=== PATIENT | female | born 2000 | race Caucasian/White ===

== ENCOUNTER 2020-06-16 11:58 | Outpatient (CLI) | payer OTHER, MEDICAID, SELFPAY ==
[2020-06-16 13:51] LABS: Basophils Percent Auto 0.2 % (0.2-1.2); Eosinophils Percent Auto 0.3 % (0-4.4); Hematocrit 33.6 % (37.0-47.0); Hemoglobin 11.5 g/dL (12.0-15.0); Immature Granulocyte Absolute 0.05 K/mm3 (0.00-0.031); Immature Granulocyte Percent A 0.6 % (0-0.5); Lymphocytes Absolute Auto 1.28 K/mm3 (0.9-3.2); Lymphocytes Percent Auto 14.9 % (18.3-44.2); Mean Corpuscular HGB Conc 34.2 g/dl (32-36); Mean Corpuscular Hemoglobin 31.8 pg (26-34); Mean Corpuscular Volume 92.8 fl (80-100); Mean Platelet Volume 9.9 fl (7.4-10.4); Monocytes Absolute Auto 0.3 K/mm3 (0.1-0.6); Monocytes Percent Auto 3.6 % (2.6-8.5); Neutrophils Absolute Auto 6.9 K/mm3 (1.3-6.7); Neutrophils Percent Auto 80.4 % (45.5-73.1); Platelet Count Result 264 k/mm3 (150-375); Red Blood Count 3.62 M/mm3 (4.2-5.4); White Blood Count 8.6 K/mm3 (4.5-10.0)
[2020-06-16 13:58] LABS: Add Urine Microscopic? YES; Appearance Urine Clear (Clear); Bilirubin Urine Negative (Negative); Blood Urine 1+ (Negative); Color Urine Yellow (Yellow); Glucose Urine UA 1+ mg/dL (Negative); Ketones Urine Negative (Negative); Leukocyte Esterase Ur Negative LEU/UL (NEGATIVE); Mucus Urine Rare /lpf; Nitrate Urine Negative (Negative); Protein Urine Negative (Negative); Specific Grav Ur 1.014 (1.001-1.035); Squamous Epithelial Cell Urine Moderate /hpf (Few); Transitional Epi Cells Urine Rare /hpf (None Seen); Urobilinogen Urine Negative mg/dL (<2.0)
[2020-06-16 14:03] LABS: Glucose 1 Hour PP 50gm Dose 175 mg/dL
[2020-06-16 14:43] LABS: HIV 1/2 Ab P24 Ag Result Negative (Negative)
[2020-06-16 15:09] LABS: Hepatitis C Virus Antibody Negative (Negative)
[2020-06-16 15:20] LABS: Hepatitis B Surface Antigen Negative (Negative); Rubella IgG Antibody 11.2 IU/ML
[2020-06-19 06:52] LABS: Rapid Plasma Reagin Non-Reactive (NonReactive)
[2020-06-24 15:20] LABS: Hematocrit 35.6 % (35.0-45.0); Hemoglobin 11.4 g/dL (11.7-15.5); MCH 33.2 pg (27.0-33.0); MCV 103.8 FL (80.0-100.0); RDW 15.7 % (11.0-15.0); Red Blood Cell Count 3.43 Mill/uL (3.80-5.10)
[2020-06-26 20:01] LABS: CF Result NEGATIVE (NEGATIVE)
== END 2020-06-16 11:59 | disposition home or self-care (01) ==
LOC: ANHLAB 12:03
PROVIDERS: Visit Provider Student in an Organized Health Care Education/Training Program
DX: Z34.90 Encounter for supervision of normal pregnancy, unspecified, unspecified trimester (principal); Z3A.00 Weeks of gestation of pregnancy not specified
CPT/HCPCS: 36415; 81001; 81220; 82306; 82947; 83021; 84443; 85025; 86592; 86703; 86762; 86787; 86803; 86850; 86900; 86901; 87077; 87086; 87088; 87186; 87340; G0432

== ENCOUNTER 2020-06-22 08:12 | Outpatient (CLI) | payer OTHER, MEDICAID, SELFPAY ==
[2020-06-22 09:16] LABS: Glucose Fasting Gestational 87 mg/dL (>/=95)
[2020-06-22 10:56] LABS: Glucose 1 Hour Gest 228 mg/dL (>/=180)
[2020-06-22 12:22] LABS: Glucose 2 Hour Gest 168 mg/dL (>/= 155)
[2020-06-22 12:49] LABS: Glucose 3 Hour Gest 101 mg/dL (>/=140)
== END 2020-06-22 08:13 | disposition home or self-care (01) ==
LOC: ANHLAB 08:15
PROVIDERS: PCP Student in an Organized Health Care Education/Training Program; Visit Provider Student in an Organized Health Care Education/Training Program
DX: R73.09 Other abnormal glucose (principal)
CPT/HCPCS: 36415; 82951; 82952

== ENCOUNTER 2020-07-14 10:30 | Outpatient (RCR) | payer OTHER, SELFPAY ==
[2020-07-12 13:15] VITALS: BMI 28.3
== END 2020-09-25 14:16 | disposition home or self-care (01) ==
LOC: ANHDMC 10:30
PROVIDERS: PCP Student in an Organized Health Care Education/Training Program; Visit Provider Student in an Organized Health Care Education/Training Program
DX: O24.419 Gestational diabetes mellitus in pregnancy, unspecified control (principal); Z71.3 Dietary counseling and surveillance; Z71.89 Other specified counseling; Z3A.00 Weeks of gestation of pregnancy not specified
CPT/HCPCS: 97802; G0108

== ENCOUNTER 2020-08-15 14:49 | Outpatient (RCR) | payer OTHER, MEDICAID, SELFPAY ==
[2020-08-09 11:41] VITALS: BP 106/67; PULSE 99
--- NOTE | 2020-08-09 12:16 | PC.NURSE ---
HALEY 11.5 cm
--- NOTE | ~2020-08-15 | US_ITS ---
US OB limited 08/09/2020 11:55 Indication: Evaluate amniotic fluid index. Procedure: Real-time Limited obstetrical ultrasound Comparison: No prior studies for comparison. Findings: There is a single living intrauterine in vertex presentation. heart rate is 136 BPM. Placenta is anterior. HALEY is normal measuring 11.5 cm (normal range for gestational age is 8.1-24.8 cm). Impression: 1: Single living intrauterine in vertex presentation. 2: Normal HALEY measures 11.5 cm. Reviewed, dictated and finalized at location A. ER STAMPING MACHINE OPERATOR Impression: 1: Single living intrauterine in vertex presentation. 2: Normal HALEY measures 11.5 cm.
[2020-08-15 15:15] VITALS: BP 120/70; PULSE 106
== END 2020-09-04 07:44 | disposition home or self-care (01) ==
LOC: ANHOBOP 14:49
PROVIDERS: Visit Provider Student in an Organized Health Care Education/Training Program
DX: O24.419 Gestational diabetes mellitus in pregnancy, unspecified control (principal); Z3A.34 34 weeks gestation of pregnancy; Z3A.35 35 weeks gestation of pregnancy
CPT/HCPCS: 59025; 76815

== ENCOUNTER 2020-09-01 07:23 | Inpatient (IN) | payer OTHER, MEDICAID, SELFPAY ==
[2020-09-01] VITALS (102 sets, daily range): BP systolic 81–128; BP diastolic 42–85; PULSE 62–184; RESP 16; TEMP 36.6–37.1; O2SAT 98–100
[2020-09-01] MEDS: AMPICILLIN 2 GM/NS 100 ML 2 GM/100 ML BAG IVPB (07:58)
[2020-09-01] MEDS: LACTATED RINGERS 1,000 ML 125 ML IV CONT ×3 (07:58→10:18)
[2020-09-01 08:00] LABS: Basophils Percent Auto 0.4 % (0.2-1.2); Eosinophils Absolute Auto 0.1 K/mm3 (0-0.3); Eosinophils Percent Auto 1.1 % (0-4.4); Immature Granulocyte Absolute 0.04 K/mm3 (0.00-0.031); Immature Granulocyte Percent A 0.5 % (0-0.5); Lymphocytes Absolute Auto 1.41 K/mm3 (0.9-3.2); Lymphocytes Percent Auto 16.9 % (18.3-44.2); Mean Corpuscular HGB Conc 33.3 g/dl (32-36); Mean Corpuscular Hemoglobin 30.6 pg (26-34); Mean Corpuscular Volume 91.9 fl (80-100); Mean Platelet Volume 9.3 fl (7.4-10.4); Monocytes Absolute Auto 0.5 K/mm3 (0.1-0.6); Monocytes Percent Auto 6.1 % (2.6-8.5); Neutrophils Absolute Auto 6.2 K/mm3 (1.3-6.7); Platelet Count Result 198 k/mm3 (150-375); Red Blood Count 3.59 M/mm3 (4.2-5.4); Red Cell Distribution Width 12.7 % (11.5-14.5); White Blood Count 8.3 K/mm3 (4.5-10.0)
[2020-09-01 08:02] LABS: Glucose Point of Care 76 (65-105)
--- NOTE | 2020-09-01 08:23 | P.PNAN_ITS ---
Anes - Initial Pre Proc Eval Procedure: labor epidural Date/Time: 09/01/20 08:23 Surgeon: Mei Nunez MD Pre Op Diagnosis: labor pain Pre Op Diagnosis: Labor Patient Data Age: 19 Gender: F Height: Weight: Allergies Allergy/AdvReac Type Severity Reaction Status Date / Time No Known Allergies Allergy Verified 08/30/20 13:42 Home Medications Medication Instructions Recorded Confirmed Type prenat.vits,dalia,abf-bthu-svcvn 1 tablet PO DAILY 06/16/20 08/09/20 History blood sugar diagnostic #100 ea 08/29/20 Rx lancets 33 gauge #100 ea 08/29/20 Rx Laboratory Tests 09/01/20 09/01/20 09/01/20 07:53 07:53 07:59 WBC 8.3 K/mm3 K/mm3 (4.5-10.0) RBC 3.59 M/mm3 L M/mm3 (4.2-5.4) Hgb 11.0 g/dL L g/dL (12.0-15.0) Hct 33.0 % L % (37.0-47.0) MCV 91.9 fl fl (80-100) MCH 30.6 pg pg (26-34) MCHC 33.3 g/dl g/dl (32-36) RDW 12.7 % % (11.5-14.5) Plt Count 198 k/mm3 k/mm3 (150-375) MPV 9.3 fl fl (7.4-10.4) Immature Gran % (Auto) 0.5 % % (0-0.5) Neut % (Auto) 75.0 % H % (45.5-73.1) Lymph % (Auto) 16.9 % L % (18.3-44.2) Crawford % (Auto) 6.1 % % (2.6-8.5) Eos % (Auto) 1.1 % % (0-4.4) Baso % (Auto) 0.4 % % (0.2-1.2) Lymph # (Auto) 1.41 K/mm3 K/mm3 (0.9-3.2) Crawford # (Auto) 0.5 K/mm3 K/mm3 (0.1-0.6) Eos # (Auto) 0.1 K/mm3 K/mm3 (0-0.3) Baso # (Auto) 0.0 K/mm3 K/mm3 (0.0-0.1) Abs Immat Gran (auto) 0.04 K/mm3 H K/mm3 (0.00-0.031) Absolute Neuts (auto) 6.2 K/mm3 K/mm3 (1.3-6.7) Absolute Nucleated RBC 0.0 K/mm3 K/mm3 (0.0-0.012) Nucleated RBC % 0.0 % % (0.0-0.2) POC Capillary Glucose 76 mg/dl mg/dl (65-105) RPR Pending Patient hx anesthesia problems: none Family hx anesthesia problems: none [facility] Past Medical History Medical History (Updated 09/01/20 @ 08:24 by Leandro Parham DO) Gestational diabetes mellitus (GDM) affecting second Vaginal delivery Family History Family History Grandparent Diabetes mellitus Alzheimer disease Liver cancer Social History Social History Smoking status: Never smoker Alcohol intake: never Substance use: never Spiritual care concerns: No Anes - Eval Final PreProcedure Day of Procedure 09/01/20 08:23 ASA classification: III Anesthesia type and monitoring: regional epidural Informed Consent: The patient's anesthetic plan and its attendant risks and benefits were discussed with the patient/family/POA. Questions were solicited and answers provided to the satisfaction of the patient/family/POA.
[2020-09-01] MEDS: fentaNYL CITRATE INJ (*CRX) 100 MCG/2 ML VIAL IV PUSH (08:32)
--- NOTE | 2020-09-01 09:03 | PM.IMHP ---
H&P: HPI History of Present Illness Date/Time: 09/01/20 09:03 Patient is a 19 yo LMP 12/09/19 currently 38w1d with ALISON 09/14/20. Patient had late entry to care and was dated by LMP consistent with an US on 06/26/20 at 28w gestation. She presented to L&D with complaint of contractions and possible leakage of fluid. Patient reports onset of contractions at approx. 6:00 a.m. They have progressively increased in intensity and frequency since then. She also reports possible leakage of fluid. Denies any vaginal bleeding. Reports good movement. Upon arrival, patient was noted to be 4-5 cm dilated. Decision made to admit patient in active labor. Chief Complaint: active labor Narrative: Nayeli Navarrete is a 19 year old female Review of Systems Review of Systems: All systems reviewed & are unremarkable except as noted in HPI and below Constitutional: Constitutional: Reports as per HPI and Reports no additional constitutional complaints Eyes: Eyes: Reports as per HPI and Reports no additional eye complaints ENT: Reports system reviewed and no additional complaints, except as documented Cardiovascular: Cardiovascular: Reports as per HPI and Reports no additional cardiovascular complaints Respiratory: Respiratory: Reports as per HPI, Reports no additional respiratory complaints, Denies cough and Denies dyspnea Gastrointestinal: Gastrointestinal: Reports as per HPI, Reports no additional gastrointestinal complaints, Denies abdominal pain, Denies change in bowel habits, Denies change in stool character, Denies nausea and Denies vomiting Genitourinary: Genitourinary: Reports no additional female genitourinary complaints, Reports as per HPI, Denies abnormal vaginal bleeding, Denies genital lesions, Denies hot flashes, Denies dyspareunia, Denies pelvic pain, Denies sexual dysfunction, Denies urinary incontinence, Denies vaginal discharge, Denies vaginal dryness and Denies vaginal odor Musculoskeletal: Musculoskeletal: Reports no additional musculoskeletal complaints and Reports as per HPI Integumentary/Breasts: Skin/Breast: Reports system reviewed and no additional complaints, except as docu, Reports as per HPI, Denies breast pain and Denies nipple discharge Neurologic: Reports system reviewed and no additional complaints, except as documented, Reports as per HPI, Reports Normal hearing present and Denies headache(s) Psychiatric: Psychiatric: Reports no additional psychiatric complaints, Reports as per HPI, Denies anxiety and Denies depression Endocrine: Endocrine: Reports no additional endocrine complaints and Reports as per HPI Hematologic/Lymphatic: Hematologic/Lymphatic: Reports no additional hematologic/lymphatic complaints and Reports as per HPI Allergic/Immunologic: Allergic/Immunologic: Reports no additional allergic/immunologic complaints and Reports as per HPI PMFSH Past Medical History Medical History Gestational diabetes mellitus (GDM) affecting second Vaginal delivery Family History Family History Grandparent Diabetes mellitus Alzheimer disease Liver cancer Social History Social History Smoking status: Never smoker Second hand tobacco smoke exposure: No Alcohol intake: never Substance use: never Spiritual care concerns: No Meds Home Medications and Allergies Home Medications Medication Instructions Recorded Confirmed Type prenat.vits,dalia,dgo-nkhi-eyofj 1 tablet PO DAILY 06/16/20 08/09/20 History blood sugar diagnostic #100 ea 08/29/20 Rx lancets 33 gauge #100 ea 08/29/20 Rx Allergies Allergy/AdvReac Type Severity Reaction Status Date / Time No Known Allergies Allergy Verified 08/30/20 13:42 Exam Const: General: cooperative, healthy appearing, comfortable and no acute distress HENMT: Head: normal to i
[2020-09-01 10:15] LABS: Glucose Point of Care 85 (65-105)
[2020-09-01] MEDS: AMPICILLIN 1 GM/NS 50 ML 1 GM/50 ML BAG IVPB (11:44)
--- NOTE | 2020-09-01 11:58 | WPDHPUPDATE1 ---
History and Physical Update Update Date/Time: 09/01/20 11:58 History and Physical has been reviewed, including an updated exam of the patient. There are NO changes in the patient's condition. Risks, benefits, and alternatives have been discussed and questions answered. Patient agrees to proceed with procedure.
[2020-09-01] MEDS: miSOPROStol 200 MCG TABLET 800 MCG RECTAL (12:40)
--- NOTE | 2020-09-01 12:46 | PM.OBPRVD ---
OB - Delivery Note Procedure Delivery date: 09/01/20 Procedure: The patient is a 19-year-old now who presented to labor and delivery on 09/01/2020 in active labor. Patient is currently 38 weeks 1 day gestation. Patient was approximately 4-5 cm dilated at time of presentation. She was admitted to Labor and delivery. The patient was uncomfortable and requested an epidural for pain management which was placed without difficulty. Patient continued to make progressive cervical change on her own and was found to be fully dilated at 10:58 a.m. Patient was noted to be GBS positive and received 2 doses of antibiotics. The patient was prepped and draped for delivery. Artificial rupture membranes was performed. Clear amniotic fluid was noted. Patient was encouraged to push. With first push, the patient delivered 's head atraumatically without difficulty in TOMMY presentation. Occiput restituted to maternal left side. With minimal effort, the 's neck, shoulders, and rest of body were delivered without difficulty. Infant's nose and mouth were suctioned with bulb suction. was crying spontaneously. was placed on maternal abdomen and care was assumed by awaiting nursing staff. Delayed cord clamping was performed for approximately 60 seconds. The cord was clamped and cut. Segment of cord was collected for cord gases. Cord blood was collected. The placenta was delivered spontaneous and intact. Mild uterine atony was noted. Vigorous bimanual massage was performed. Uterine fundus became firm. On inspection, no lacerations were noted. Cytotec 800 mcg was administered rectally due to uterine atony. Estimated blood loss for entire delivery was 450 cc. The patient was cleansed and dried. The infant was a liveborn female infant, Apgars 8 and 9, weighing 6 lb 12 oz. Both mother and baby doing well at end of delivery. events: Gestational Diabetes Intrapartal events: None Induction method: none Delivery monitor: external FHT and external uterine Laceration Description: None Specimen: Yes (placenta, cord blood, and cord gases) Quantitative Blood Loss (ml): 450 Anesthesia type: Epidural Disposition: floor Complications: No immediate complications Baby Date of : 09/01/20 Time of : 12:34 Weeks of gestation at delivery: 38 (38.1) gender: Female Weight (pounds): 6 Weight (ounces): 12 presentation: vertex position: Left Occiput Anterior Placenta delivery description: Spontaneous cord vessel description: 3 Vessels, Clamped/Cut and Delayed Cord Clamping score one minute: 8 score five minutes: 9
[2020-09-01] MEDS: OXYTOCIN 30 UNITS/NS 500 ML 30 UNITS/500 ML BAG 125 UNITS IV CONT (13:11)
[2020-09-01] MEDS: IBUPROFEN 600 MG TABLET PO (17:06)
--- NOTE | 2020-09-01 19:12 | PC.NURSE ---
1526-Patient transferred to post room #287 via wheelchair. Support person present. Oriented to unit, room, information board, rooming in, admission packet and security measures. Patient verbalizes understanding.
[2020-09-02 04:50] VITALS: BP 114/73; PULSE 94
[2020-09-02 04:55] LABS: Hematocrit 32.1 % (37.0-47.0); Hemoglobin 10.6 g/dL (12.0-15.0)
--- NOTE | 2020-09-02 06:30 | PC.NURSE ---
PT introductions made and plan of care discussed per post , pain management, bottle feeding, daily care activities and pending discharge to home. PT verbalized understanding of such care.
[2020-09-02 08:45] VITALS: BP 113/76; PULSE 91; RESP 18; TEMP 36.6
[2020-09-02] MEDS: TETANUS,DIPHTHERIA,AC PERTUSSIS ADULT (0.5 ML) BOOSTRIX IM (09:54)
--- NOTE | 2020-09-02 09:54 | PM.OBPNVD ---
OB - PN: Subj Subjective Date/time seen: 09/02/20 09:54 Patient reports doing well. Denies significant pain. Denies any headache, chest pain, SOB, N/V. Minimal lochia. Ambulating well. OB - PN: Obj Data Labs CBC & Chem 7: 09/02/20 04:47 Labs: Laboratory Results - last 24 hr 09/01/20 09/02/20 10:06 04:47 Hgb 10.6 L Hct 32.1 L POC Capillary Glucose 85 OB - PN A/P Assessment and Plan (1) Normal spontaneous vaginal delivery: Code(s): O80 - Encounter for full-term uncomplicated delivery Status: Acute Assessment and Plan: PPD#1 doing well pt requesting PPD#1 discharge if infant cleared emergency precautions reviewed advised to f/u in office in 4-6 weeks for visit Time Spent With Patient Time: Total time spent is greater than 50% in coordination of care (as documented) at patient's floor/unit and/or counseling patient: Exam Const: General: cooperative, healthy appearing, comfortable and no acute distress GI: GI Palp: Yes Soft to palpation and No Tenderness to palpation present (GI) Other: fundus below umbilicus Extrem: Right lower extremity: no edema Left lower extremity: no edema Other: no calf tenderness
[2020-09-02] MEDS: IBUPROFEN 600 MG TABLET PO (09:55)
[2020-09-02 09:56] VITALS: PULSE 91; RESP 18; O2SAT 100
[2020-09-02] MEDS: DOCUSATE SODIUM 100 MG CAPSULE PO (09:56)
--- NOTE | 2020-09-02 10:00 | P.DS_ITS ---
DS: Admitting Diagnosis Admitting Diagnosis Admitting Diagnosis: active labor OB - DS: Summary OB Procedures : None OB Procedures Intrapartum: Spontaneous Vag Delivery OB Procedures: : None Time Spent with Patient Time attestation: Total time spent providing and/or coordinating discharge services: DS: Data Data Completed and Pending Labs on day of discharge: Labs from last 24 hours 09/02/20 09/01/20 04:47 10:06 Hgb 10.6 L Hct 32.1 L POC Capillary Glucose 85 Discharge Plan Discharge Attending physician on discharge: Mei Nunez Discharging Clinician: Mei Nunez Anticipated Discharge Date/Time: 09/02/20 10:01 Patient Disposition: Home, Self-Care Activity: pelvic rest Diet: regular Discharge Instructions: Call office ([phone]) to schedule a visit in 4-6 weeks. You may take Ibuprofen 600mg every 6 hours as needed for pain. Pain medication may make you constipated. It may be helpful to take an [id number]-[id number] stool softener, such as Colace and/or Senokot, along with the pain medication to help lessen constipation. Call office or go to ED for pain not controlled with medication, headache, chest pain, shortness of breath, fever, chills, persistent nausea or vomiting, severe abdominal pain, heavy vaginal bleeding >2 pads/hour, foul vaginal discharge or odor, or problems with your breasts. Patient Instructions: Antibiotic Form Stand Alone Forms: General Discharge Information Follow-up/Referrals: Mei Nunez MD [Physician] - Discharge Medications: Continued prenat.vits,dalia,nml-sisg-jrrct Tablet 1 tablet PO DAILY RF: 0 Discontinued (DME) OneTouch Verio test strips Strip See Rx Instructions .ROUTE .MEDSUPPLY Qty: 100 RF: 1 (DME) lancets [OneTouch Delica Lancets] 33 gauge misc See Rx Instructions .ROUTE .MEDSUPPLY Qty: 100 RF: 1 Date of admission: 09/01/20 07:23 Primary Care Provider: PHYSICIAN,LENDING ACTIVITIES SUPERVISOR Admitting Provider: Mei Nunez Attending physician on admission: Mei Nunez Condition: Stable
--- NOTE | 2020-09-02 11:24 | WPDANLDPN2 ---
Anes-Prog Note L&D Date/Time: 09/02/20 11:24 Comfortable throughout: labor and delivery Neuraxial method: epidural Epidural/Spinal procedure site: clean & non-tender Neuro status: Neuro function grossly intact. Cardiovascular status: normal Respiratory status: normal Airway patency: baseline Mental status: baseline Post-Op hydration status: normal Vital Signs: Last Vital Signs Temp 36.6 C 09/01/20 19:55 Pulse 94 09/02/20 04:50 Resp 16 09/01/20 19:55 BP 114/73 09/02/20 04:50 Pulse Ox 100 09/01/20 19:55 Pain score (VAS): 09/24 Patient feedback: Patient satisfied with anesthetic care.
--- NOTE | 2020-09-02 14:30 | PC.NURSE ---
PT received discharge instructions per protocol and verbalized understanding of such care.
--- NOTE | 2020-09-02 15:04 | PC.NURSE ---
PT discharged to home ambulatory accompanied by significant other and and walked to waiting car. Follow up appts confirmed
[2020-09-04 11:03] LABS: Rapid Plasma Reagin Non-Reactive (NonReactive)
== END 2020-09-02 15:04 | disposition home or self-care (01) | DRG 807 ==
LOC: ANHLDR 07:44 → ANHOB2 15:38
PROVIDERS: Admitting Provider Student in an Organized Health Care Education/Training Program; Visit Provider Student in an Organized Health Care Education/Training Program
DX: O24.420 Gestational diabetes mellitus in childbirth, diet controlled (principal); Z37.0 Single live birth; Z3A.38 38 weeks gestation of pregnancy; O99.824 Streptococcus B carrier state complicating childbirth; O43.123 Velamentous insertion of umbilical cord, third trimester
CPT/HCPCS: 36415; 85014; 85018; 85025; 86592; 86850; 86900; 86901; 88307; 90715; A9270; J0290; J2590; J2795; J3010; J7120

== ENCOUNTER 2021-09-06 14:35 | Outpatient (CLI) | payer OTHER, MEDICAID, SELFPAY ==
--- NOTE | ~2021-09-06 | US_ITS ---
EXAMINATION: US OB follow up DATE: 09/06/2021 15:33 INDICATION: Assess dating of during early second trimester TECHNIQUE: Real-time ultrasound of the pelvis was performed. The interpreting radiologist was not pre sent for the study. COMPARISON: 08/09/2020 FINDINGS: There is a single living fetus in vertex presentation. The placenta is anterior. heart rate is 153 beats per minute (bpm). The amniotic fluid volume is subjectively normal. The following biometric data were obtained: BPD: 3.8 cm -> 17 weeks 5 days Head circumference: 14.5 cm -> 17 weeks 5 days Abdominal circumference: 12.1 cm -> 17 weeks 5 days Femur length: 2.5 cm -> 17 weeks 3 days These measurements are concordant. Head circumference to abdominal circumference ratio: 1.20 (normal range 1.08-1.28). Estimated weight: 204 g (+/-) 31 g or 7 oz. (+/-) 1 oz. IMPRESSION: 1. Single living fetus in vertex presentation with heart rate of 153 bpm. 2. Gestational age by ultrasound of 17 weeks 5 day(s) +/- 1 week(s) 2 day(s) with ultrasound estimate d date of delivery (ALISON) of 02/09/2022. Estimated weight is 19th percentile by Hadlock criteria when 02/06/2022 is used as the ALISON. Please correlate with clinical information or earlier ultrasounds for most accurate ALISON. Reviewed, dictated and finalized at [facility]. NICAL EXPERT IMPRESSION: 1. Single living fetus in vertex presentation with heart rate of 153 bpm. 2. Gestational age by ultrasound of 17 weeks 5 day(s) +/- 1 week(s) 2 day(s) wi th ultrasound estimated date of delivery (ALISON) of 02/09/2022. Estimated we ight is 19th percentile by Hadlock criteria when 02/06/2022 is used as the ALISON. Please correlate with clinical information or earlier ultrasounds for most accu rate ALISON.
== END 2021-09-06 14:36 | disposition home or self-care (01) ==
LOC: ANHIMG 14:36
PROVIDERS: Visit Provider Student in an Organized Health Care Education/Training Program
DX: Z34.92 Encounter for supervision of normal pregnancy, unspecified, second trimester (principal); Z3A.17 17 weeks gestation of pregnancy
CPT/HCPCS: 76816

== ENCOUNTER 2021-09-21 14:00 | Outpatient (CLI) | payer OTHER, MEDICAID, SELFPAY ==
[2021-09-21 18:52] LABS: Add Urine Microscopic? YES; Appearance Urine Clear (Clear); Bacteria Urine Trace /hpf; Bilirubin Urine Negative (Negative); Blood Urine Negative (Negative); Calcium Oxalate Crystals Urine Present /hpf; Color Urine Yellow (Yellow); Glucose Urine UA Negative (Negative); Ketones Urine Negative (Negative); Leukocyte Esterase Ur Negative LEU/UL (NEGATIVE); Mucus Urine Rare /lpf; Nitrate Urine Negative (Negative); Protein Urine Negative (Negative); Squamous Epithelial Cell Urine Moderate /hpf (Few); WBC Urine 0-3 /hpf (0-3)
[2021-09-21 19:12] LABS: Basophils Absolute Auto 0.1 K/mm3 (0.0-0.1); Basophils Percent Auto 0.7 % (0.2-1.2); Eosinophils Absolute Auto 0.1 K/mm3 (0-0.3); Eosinophils Percent Auto 0.9 % (0-4.4); Hematocrit 35.4 % (37.0-47.0); Hemoglobin 11.9 g/dL (12.0-15.0); Immature Granulocyte Absolute 0.01 K/mm3 (0.00-0.031); Immature Granulocyte Percent A 0.1 % (0-0.5); Lymphocytes Absolute Auto 1.75 K/mm3 (0.9-3.2); Lymphocytes Percent Auto 25.5 % (18.3-44.2); Mean Corpuscular HGB Conc 33.6 g/dl (32-36); Mean Corpuscular Volume 95.2 fl (80-100); Mean Platelet Volume 10.6 fl (7.4-10.4); Monocytes Absolute Auto 0.3 K/mm3 (0.1-0.6); Monocytes Percent Auto 4.8 % (2.6-8.5); Neutrophils Absolute Auto 4.7 K/mm3 (1.3-6.7); Platelet Count Result 259 k/mm3 (150-375); Red Blood Count 3.72 M/mm3 (4.2-5.4); Red Cell Distribution Width 13.1 % (11.5-14.5); White Blood Count 6.9 K/mm3 (4.5-10.0)
[2021-09-21 19:40] LABS: Vitamin D 25 Hydroxy 42.3 ng/mL
[2021-09-21 19:57] LABS: Hepatitis B Surface Antigen Negative (Negative); Rubella IgG Antibody 13.7 IU/ML
[2021-09-21 20:03] LABS: HIV 1/2 Ab P24 Ag Result Negative (Negative)
[2021-09-21 20:10] LABS: Hepatitis C Virus Antibody Negative (Negative)
[2021-09-24 11:22] LABS: Rapid Plasma Reagin Non-Reactive (NonReactive)
== END 2021-09-21 14:01 | disposition home or self-care (01) ==
LOC: ANHBWCLAB 14:02
PROVIDERS: Visit Provider Student in an Organized Health Care Education/Training Program
DX: Z34.92 Encounter for supervision of normal pregnancy, unspecified, second trimester (principal); Z3A.17 17 weeks gestation of pregnancy
CPT/HCPCS: 36415; 81001; 82306; 84443; 85025; 86592; 86703; 86762; 86787; 86803; 86850; 86900; 86901; 87086; 87340; G0432

== ENCOUNTER 2021-11-15 10:44 | Outpatient (CLI) | payer OTHER, MEDICAID, SELFPAY ==
[2021-11-15 12:26] LABS: Basophils Percent Auto 0.4 % (0.2-1.2); Eosinophils Percent Auto 0.3 % (0-4.4); Hematocrit 33.9 % (37.0-47.0); Hemoglobin 11.2 g/dL (12.0-15.0); Immature Granulocyte Absolute 0.02 K/mm3 (0.00-0.031); Immature Granulocyte Percent A 0.3 % (0-0.5); Lymphocytes Absolute Auto 1.55 K/mm3 (0.9-3.2); Lymphocytes Percent Auto 21.1 % (18.3-44.2); Mean Corpuscular Hemoglobin 31.9 pg (26-34); Mean Corpuscular Volume 96.6 fl (80-100); Mean Platelet Volume 9.7 fl (7.4-10.4); Monocytes Absolute Auto 0.4 K/mm3 (0.1-0.6); Monocytes Percent Auto 4.8 % (2.6-8.5); Neutrophils Absolute Auto 5.4 K/mm3 (1.3-6.7); Neutrophils Percent Auto 73.1 % (45.5-73.1); Platelet Count Result 245 k/mm3 (150-375); Red Blood Count 3.51 M/mm3 (4.2-5.4); Red Cell Distribution Width 12.4 % (11.5-14.5); White Blood Count 7.3 K/mm3 (4.5-10.0)
[2021-11-15 12:43] LABS: Glucose 1 Hour PP 50gm Dose 93 mg/dL
== END 2021-11-15 10:45 | disposition home or self-care (01) ==
PROVIDERS: Visit Provider Student in an Organized Health Care Education/Training Program
DX: Z34.92 Encounter for supervision of normal pregnancy, unspecified, second trimester (principal); Z3A.28 28 weeks gestation of pregnancy
CPT/HCPCS: 36415; 82947; 85025

== ENCOUNTER 2022-01-03 13:57 | Outpatient (CLI) | payer OTHER, MEDICAID, SELFPAY ==
[2022-01-03 14:11] LABS: Basophils Percent Auto 0.4 % (0.2-1.2); Eosinophils Absolute Auto 0.1 K/mm3 (0-0.3); Eosinophils Percent Auto 1.6 % (0-4.4); Hematocrit 29.9 % (37.0-47.0); Hemoglobin 10.1 g/dL (12.0-15.0); Immature Granulocyte Absolute 0.08 K/mm3 (0.00-0.031); Immature Granulocyte Percent A 1.2 % (0-0.5); Lymphocytes Absolute Auto 1.67 K/mm3 (0.9-3.2); Lymphocytes Percent Auto 24.1 % (18.3-44.2); Mean Corpuscular HGB Conc 33.8 g/dl (32-36); Mean Corpuscular Hemoglobin 30.6 pg (26-34); Mean Corpuscular Volume 90.6 fl (80-100); Monocytes Absolute Auto 0.4 K/mm3 (0.1-0.6); Monocytes Percent Auto 6.4 % (2.6-8.5); Neutrophils Absolute Auto 4.6 K/mm3 (1.3-6.7); Neutrophils Percent Auto 66.3 % (45.5-73.1); Platelet Count Result 221 k/mm3 (150-375); Red Cell Distribution Width 12.7 % (11.5-14.5); White Blood Count 6.9 K/mm3 (4.5-10.0)
[2022-01-03 15:57] LABS: HIV 1/2 Ab P24 Ag Result Negative (Negative)
[2022-01-04 07:20] LABS: Rapid Plasma Reagin Non-Reactive (NonReactive)
== END 2022-01-03 13:58 | disposition home or self-care (01) ==
LOC: ANHLAB 13:59
PROVIDERS: Visit Provider Student in an Organized Health Care Education/Training Program
DX: Z34.93 Encounter for supervision of normal pregnancy, unspecified, third trimester (principal); Z3A.35 35 weeks gestation of pregnancy
CPT/HCPCS: 36415; 85025; 86592; 86703; G0432

== ENCOUNTER 2022-01-23 13:56 | Outpatient (CLI) | payer OTHER, MEDICAID, SELFPAY ==
--- NOTE | 2022-01-23 14:15 | PC.NURSE ---
Patient reports to OB unit with complaint of leaking of fluid at 1300. Patient states that she is no longer leaking fluid. SVE /-3 with notable bag of fluid. SVE unchanged from exam in office.
--- NOTE | 2022-01-23 14:45 | PC.NURSE ---
Dr. Nunez notified of negative ROM plus results. Order to send patient home.
== END 2022-01-23 14:55 | disposition home or self-care (01) ==
LOC: ANHOBOP 14:46
PROVIDERS: Visit Provider Student in an Organized Health Care Education/Training Program
DX: O41.8X90 Other specified disorders of amniotic fluid and membranes, unspecified trimester, not applicable or unspecified (principal); Z3A.00 Weeks of gestation of pregnancy not specified
CPT/HCPCS: 59025; 84112

== ENCOUNTER 2022-01-29 19:01 | Outpatient (CLI) | payer OTHER, MEDICAID, SELFPAY ==
--- NOTE | ~2022-01-29 | US_ITS ---
EXAMINATION: US OB follow up DATE: 01/29/2022 19:39 INDICATION: Size versus dates. Evaluate weight and HALEY. Clinical EGA 38 weeks 1 day, ALISON by LMP 02/06/2022. TECHNIQUE: Real-time ultrasound of the pelvis was performed. COMPARISON: 09/06/2021. FINDINGS: There is a single living fetus in vertex presentation. The placenta is anterior, longitudinal lie. F etal heart rate is 142 beats per minute (bpm). The amniotic fluid index is 9.04 cm, which is low-norm al (5th to 95th percentile is 7.3 to 23.9 cm).] Biparietal diameter: 9.1 cm corresponding to 37 weeks 0 days. Head circumference 33.38 cm corresponding to 38 weeks 1 day. Abdominal circumference 33.39 cm corresponding to 37 weeks 2 days. Femoral length 6.63 cm corresponding to 34 weeks 1 day. CI: 77.60, within normal limits. FL/BPD: 72.82, within normal limits. HC/AC: 1.00, within normal limits. FL/AC: 19.87 (normal range 20-24). FL/HC 19.88 (20.6-22.46). Estimated weight 2977 g, +/- 446.54 g, EFW-GP 16%. Estimated gestational age by ultrasound 36 weeks 5 days +/- 2 weeks and 4 days. IMPRESSION: 1. Single living fetus in vertex presentation.] 2. Normal placenta. 3. Low normal HALEY. 4. Estimated weight 2977 g +/- 446.54 g, 16th percentile. 5. Discrepant calendar and sonographic dates. GA by ultrasound 36 weeks 5 days, +/- 2 weeks and 4 day s, ALISON by ultrasound 02/21/2022. 6. Femoral length is discrepant, as measured in this examination. Reviewed, dictated and finalized at location K. IMPRESSION: 1. Single living fetus in vertex presentation.] 2. Normal placenta. 3. Low normal HALEY. 4. Estimated weight 2977 g +/- 446.54 g, 16th percentile. 5. Discrepant calendar and sonographic dates. GA by ultrasound 36 weeks 5 days, +/- 2 weeks and 4 days, ALISON by ultrasound 02/21/2022. 6. Femoral length is discrepant, as measured in this examination.
== END 2022-01-29 19:02 | disposition home or self-care (01) ==
PROVIDERS: Visit Provider Student in an Organized Health Care Education/Training Program
DX: Z34.93 Encounter for supervision of normal pregnancy, unspecified, third trimester (principal); Z3A.36 36 weeks gestation of pregnancy
CPT/HCPCS: 76816

== ENCOUNTER 2022-01-31 01:26 | Inpatient (IN) | payer OTHER, MEDICAID, SELFPAY ==
[2022-01-31] VITALS (75 sets, daily range): BP systolic 94–174; BP diastolic 39–156; PULSE 71–132; RESP 16–18; TEMP 36.3–37.4; O2SAT 94–100; BMI 27.6
[2022-01-31] MEDS: LACTATED RINGERS 1,000 ML 125 ML IV CONT ×2 (01:51→03:08)
--- NOTE | 2022-01-31 01:53 | LDADM ---
This patient, Nayeli Navarrete, was admitted to Labor/Delivery/Recovery 107 on 01/31/22 at 01:26. Plans for labor, pain management and were discussed with patient. Patient/family oriented to hospital policies and general routines including ID bracelet, bed and alarms, visiting hours, pain management, procedures, bathroom and other care routines, personal items, smoking policy, room service/diet and guest tray routines, security routines, and visiting hours. Patient/Family are encouraged to report perceived risks to care and to ask questions if they do not understand what they are told or what they should do. See OBIX for further documentation.
[2022-01-31 01:59] LABS: Basophils Percent Auto 0.4 % (0.2-1.2); Eosinophils Absolute Auto 0.1 K/mm3 (0-0.3); Eosinophils Percent Auto 1.1 % (0-4.4); Hematocrit 30.4 % (37.0-47.0); Hemoglobin 9.9 g/dL (12.0-15.0); Immature Granulocyte Absolute 0.05 K/mm3 (0.00-0.031); Immature Granulocyte Percent A 0.6 % (0-0.5); Lymphocytes Absolute Auto 2.16 K/mm3 (0.9-3.2); Mean Corpuscular HGB Conc 32.6 g/dl (32-36); Mean Corpuscular Hemoglobin 30.6 pg (26-34); Mean Corpuscular Volume 93.8 fl (80-100); Mean Platelet Volume 9.2 fl (7.4-10.4); Monocytes Absolute Auto 0.4 K/mm3 (0.1-0.6); Monocytes Percent Auto 4.7 % (2.6-8.5); Neutrophils Absolute Auto 6.2 K/mm3 (1.3-6.7); Neutrophils Percent Auto 69.2 % (45.5-73.1); Platelet Count Result 214 k/mm3 (150-375); Red Blood Count 3.24 M/mm3 (4.2-5.4); Red Cell Distribution Width 14.6 % (11.5-14.5)
--- NOTE | 2022-01-31 02:14 | P.PNAN_ITS ---
Anes - Eval Pre Procedure Procedure: Labor epidural Date/Time: 01/31/22 02:14 Surgeon: elio Preop Diagnosis: Abd pain with contractions Pre Op Diagnosis: CXN Patient Data Age: 21 Gender: F Height: 1.7 m Weight: 80 kg Last Vital Signs Pulse 99 01/31/22 02:00 BP 126/85 01/31/22 02:00 Pulse Ox 98 01/31/22 02:11 Allergies Allergy/AdvReac Type Severity Reaction Status Date / Time No Known Allergies Allergy Verified 01/29/22 15:02 Home Medications Medication Instructions Recorded Confirmed Type prenat.vits,dalia,ynl-kwuu-qvhjr 1 tablet PO DAILY 06/16/20 01/21/22 History ferrous sulfate 325 mg (65 mg 325 mg PO DAILY #90 tablet 01/03/22 01/21/22 Rx iron) tablet Laboratory Tests 01/31/22 01/31/22 01:47 01:47 WBC Pending RBC Pending Hgb Pending Hct Pending MCV Pending MCH Pending MCHC Pending RDW Pending Plt Count Pending MPV Pending Immature Gran % (Auto) Pending Neut % (Auto) Pending Lymph % (Auto) Pending Stafford % (Auto) Pending Eos % (Auto) Pending Baso % (Auto) Pending Lymph # (Auto) Pending Stafford # (Auto) Pending Eos # (Auto) Pending Baso # (Auto) Pending Abs Immat Gran (auto) Pending Absolute Neuts (auto) Pending Absolute Nucleated RBC Pending Nucleated RBC % Pending RPR Pending Patient hx anesthesia problems: none Family hx anesthesia problems: none Results Review: All pre-operative results and documents have been reviewed as part of the pre-operative evaluation. [facility] Past Medical History Medical History Gestational diabetes mellitus (GDM) affecting second Migraines Overweight (BMI 25.0-29.9) and not yet delivered Vaginal delivery Family History Family History Grandparent Diabetes mellitus Alzheimer disease Liver cancer Social History Social History Smoking status: Never smoker Second hand tobacco smoke exposure: No Alcohol intake: never Substance use: never Spiritual care concerns: No Exam Day of Procedure 01/31/22 02:14 Patient weight: overweight Airway: Mallampati scale class II Neurological: alert and oriented
--- NOTE | 2022-01-31 03:25 | PM.IMHP ---
H&P: HPI History of Present Illness Date/Time: 01/31/22 03:25 Patient is a 21yo LMP 05/02/21 currently 39w1d with ALISON 02/06/22 who presented to L&D with complaints of contractions. Patient is dated by LMP c/w US on 09/06/21 at 17w gestation. Patient reports onset of contractions at 11:00 p.m. Reports increase in frequency and intensity since then. Denies any vaginal bleeding or leakage of fluid. Reports good movement. Patient was noted to be 6cm dilated at time of arrival. Decision made to admit to L&D in active labor. Chief Complaint: Active labor Review of Systems Review of Systems: All systems reviewed & are unremarkable except as noted in HPI and below Constitutional: Constitutional: Reports as per HPI, Reports no additional constitutional complaints, Denies chills, Denies fever(s), Denies headache(s) and Denies night sweats Eyes: Eyes: Reports as per HPI and Reports no additional eye complaints ENT: Reports system reviewed and no additional complaints, except as documented, Reports as per HPI, Reports Normal hearing present and Denies headache(s) Cardiovascular: Cardiovascular: Reports as per HPI, Reports no additional cardiovascular complaints, Denies chest pain and Denies dyspnea Respiratory: Respiratory: Reports as per HPI, Reports no additional respiratory complaints, Denies cough and Denies dyspnea Gastrointestinal: Gastrointestinal: Reports as per HPI, Reports no additional gastrointestinal complaints, Denies abdominal pain, Denies change in bowel habits, Denies change in stool character, Denies nausea and Denies vomiting Genitourinary: Genitourinary: Reports no additional female genitourinary complaints, Reports as per HPI, Denies abnormal vaginal bleeding, Denies genital lesions, Denies hot flashes, Denies dyspareunia, Denies pelvic pain, Denies sexual dysfunction, Denies urinary incontinence, Denies vaginal discharge, Denies vaginal dryness and Denies vaginal odor Musculoskeletal: Musculoskeletal: Reports no additional musculoskeletal complaints and Reports as per HPI Integumentary/Breasts: Skin/Breast: Reports system reviewed and no additional complaints, except as docu, Reports as per HPI, Denies breast pain and Denies nipple discharge Neurologic: Reports system reviewed and no additional complaints, except as documented, Reports as per HPI, Reports Normal hearing present and Denies headache(s) Psychiatric: Psychiatric: Reports no additional psychiatric complaints, Reports as per HPI, Denies anxiety and Denies depression Endocrine: Endocrine: Reports no additional endocrine complaints and Reports as per HPI Hematologic/Lymphatic: Hematologic/Lymphatic: Reports no additional hematologic/lymphatic complaints and Reports as per HPI Allergic/Immunologic: Allergic/Immunologic: Reports no additional allergic/immunologic complaints and Reports as per HPI PMFSH Past Medical History Medical History Gestational diabetes mellitus (GDM) affecting second Migraines Overweight (BMI 25.0-29.9) and not yet delivered Vaginal delivery Family History Family History Grandparent Diabetes mellitus Alzheimer disease Liver cancer Social History Social History Smoking status: Never smoker Second hand tobacco smoke exposure: No Alcohol intake: never Substance use: never Spiritual care concerns: No Meds Home Medications and Allergies Home Medications Medication Instructions Recorded Confirmed Type prenat.vits,dalia,eij-qccd-hfvfn 1 tablet PO DAILY 06/16/20 01/21/22 History ferrous sulfate 325 mg (65 mg 325 mg PO DAILY #90 tablet 01/03/22 01/21/22 Rx iron) tablet Allergies Allergy/AdvReac Type Severity Reaction Status Date / Time No Known Allergies Allergy Verified 01/29/22 15:02 Vital Signs Vital Signs - 24 hr 05
--- NOTE | 2022-01-31 03:30 | WPDHPUPDATE1 ---
History and Physical Update Update Date/Time: 01/31/22 03:30 History and Physical has been reviewed, including an updated exam of the patient. There are NO changes in the patient's condition. Risks, benefits, and alternatives have been discussed and questions answered. Patient agrees to proceed with procedure.
--- NOTE | 2022-01-31 03:31 | PM.OBPNLAB ---
Pain Control Date/time seen: 01/31/22 03:31 SVE 8/100/-1. AROM performed, clear fluid noted. EFM 140/mod/+/-. [place] shows contractions q1-1.5 mins. Patient comfortable with epidural. Anticipate .
[2022-01-31] MEDS: OXYTOCIN 30 UNITS/NS 500 ML 30 UNITS/500 ML BAG 999 UNITS IV CONT (03:40)
--- NOTE | 2022-01-31 03:49 | P.PCNOB_ITS ---
OB - Delivery Note Procedure Delivery date: 01/31/22 Procedure: The patient is a 21-year-old now who presented to labor and delivery on fruit pitter of 01/31/2022 at 39 weeks 1 day gestation in active labor. Upon presentation to labor and delivery, patient was noted to be 6 cm di lated. Patient was admitted in active labor. Patient was uncomfortable and requested an epidural for pain management which was placed without difficulty. Patient was noted be leida every 1 - 1.5 minutes. She progressed 8 cm dilated. Bulging membranes were noted. At 3:17 a.m., artificial rupture membranes was performed. Clear amniotic fluid was noted. Patient was noted to be fully dilated at 3:19 a.m. Patient was encouraged to push and found to be pushing well. She was prepped and draped for delivery. At 3:36 a.m., patient delivered infant head atraumatically and without difficulty in TOMMY presentation. Occiput restituted to direct occiput posterior presentation. With subsequent push, the 's neck, shoulders, and rest of body delivered without difficulty. Infant was crying spontaneously. Infant's nose and mouth were suctioned with bulb suction. was placed on maternal abdomen where care was assumed by awaiting nursing staff. Delayed cord clamping was performed for approximately 60 seconds. The cord was clamped and cut. A segment of cord was collected for cord gases. Cord blood was collected. The placenta was delivered spontaneously and intact. Uterus was noted to be firm with bimanual massage. On inspection, no lacerations were noted. Estimated blood loss for entire delivery was 150 cc. The infant was a live-born female infant, Apgars 9 and 9, weighing 6 lb 10 oz. Both mother and baby doing well at end of delivery. Delivery augmentation: Rupture of Membranes Delivery monitor: External FHT and External Uterine Route of delivery: Laceration Description: None Specimen: Yes (cord gases and cord blood) Quantitative Blood Loss (ml): 150 Anesthesia type: Epidural Disposition: Floor Complications: No immediate complications [place] Baby Date of : 01/31/22 Time of : 03:36 Weeks of gestation at delivery: 39 (39.1) Infant gender: Female Weight (pounds): 6 Weight (ounces): 10 presentation: vertex position: Left Occiput Anterior Placenta delivery description: Spontaneous Cord Vessel Description: 3 Vessels and Delayed Cord Clamping (x 60s) score one minute: 9 score five minutes: 9 AMG Delivery Billing Delivery Delivery: Delivery Charge
[2022-01-31] MEDS: OXYTOCIN 30 UNITS/NS 500 ML 30 UNITS/500 ML BAG 125 UNITS IV CONT (04:12)
[2022-01-31] MEDS: WITCH HAZEL 40 PADS 1 PAD TOPICAL (06:48)
[2022-01-31] MEDS: IBUPROFEN 600 MG TABLET PO ×2 (07:06→16:58)
--- NOTE | 2022-01-31 07:10 | OBPPTRN ---
Patient transferred to post room # 292 via wheelchair. Support person present. Oriented to unit, room 292 information board, rooming in, admission packet and security measures. Patient verbalizes understanding. PT received instructions per one to one to discussion, mom baby care guide and demonstrations this shift. PT and spouse both recipients of such instructions.. No barriers to learning identified at this time.
[2022-01-31] MEDS: DOCUSATE SODIUM 100 MG CAPSULE PO ×2 (07:44→16:58)
[2022-01-31] MEDS: POLYSACCHARIDE IRON COMPLEX 150 MG CAPSULE PO ×2 (07:44→16:58)
[2022-01-31] MEDS: MULTIVIT/MIN/PREN/FOL AC/IRON TABLET 1 TAB PO (07:44)
[2022-01-31 08:36] LABS: Rapid Plasma Reagin Non-Reactive (NonReactive)
--- NOTE | 2022-01-31 13:39 | PC.NURSE ---
[id number] Introductions were made, then consulted with patient to assess needs related to . Mother led the conversation with her experience feeding her so far. Mother works well with her with encouragement and education. Encouraged understanding of the benefits of skin to skin (unwrapping and placing vertically on her chest), responsive feeding and how to watch for early feeding signs, frequency of feeding on demand about every 8-12 times in 24 hours (every 2-3 hours), milk production, duration of feeding, signs of adequate intake/output and how to record on the feeding sheet. Reviewed positioning and ear, shoulder, hip alignment, supporting the breast, asymmetrical latch (off-center), and leading with the chin with a big open side gape. Attempted infant to the left breast using football position with a nipple shield. Mother has inverted nipples and doesn't have a history of her other child. Mother states she wants to breastfeed and/or pump related to the shortage of formula scare . Infant was unable to maintain latch without discomfort to mother. Nipple care reviewed with optimal latch and good positioning with a nipple shield. Breast pump provided due to inverted nipples and ineffective feedings using a nipple shield. Instructions given on cleaning, care, usage, there should be no pain, pumping schedule for milk production, collection, and storage of human milk. Parents are encouraged to record pumping schedule on the feeding sheet. Patient was assessed for correct placement, flange size, to pump for comfort and nipple stretching/stimulation for adequate milk production. Mother voiced understanding of the education shared. Reported to the primary RN. Primary RN states she assisted mother with infant around 0800 with no latch but did hand express colostrum and it was fed to . Reviewed good handwashing when or touching the breast/nipples to prevent infection. Resources used to facilitate learning were used with the mom and baby guide. Mother voiced understanding of responsive feedings, stimulating with skin to skin, hand expressed colostrum, touch, talking to infant to encourage if it has been 2 -3 hours since the start of the last , to call if infant does not latch or there is discomfort with .
[2022-02-01] MEDS: IBUPROFEN 600 MG TABLET PO ×2 (00:34→10:06)
[2022-02-01 05:15] LABS: Hematocrit 31.2 % (37.0-47.0); Hemoglobin 9.9 g/dL (12.0-15.0)
--- NOTE | 2022-02-01 08:00 | PC.NURSE ---
PT introductions made and plan of care discussed per post , pain management, pumping and bottle feeding, daily care activities and pending discharge to home. Patient verbalizes understanding. PT received instructions per one to one to discussion, mom baby care guide and demonstrations this shift. PT and spouse both recipients of such instructions.. No barriers to learning identified at this time.
[2022-02-01 08:25] VITALS: BP 120/85; PULSE 85; RESP 16; TEMP 36.8; O2SAT 100
--- NOTE | 2022-02-01 08:26 | PM.OBPNVD ---
OB - PN: Subj Subjective Date/time seen: 02/01/22 08:26 Patient doing well this morning. Denies any significant pain. Cramping well controlled medication. Minimal lochia. Ambulating without difficulty. Voiding well. OB - PN: Obj Data Labs CBC & Chem 7: 02/01/22 03:49 Labs: Laboratory Results - last 24 hr 01/31/22 02/01/22 01:47 03:49 Hgb 9.9 L Hct 31.2 L RPR Non-reactive OB - PN A/P Assessment and Plan (1) Normal spontaneous vaginal delivery: Code(s): O80 - Encounter for full-term uncomplicated delivery Status: Acute Assessment and Plan: PPD#1 doing well dc home in stable condition emergency precautions reviewed f/u in office in 4-6 weeks for visit Time Spent With Patient Time: Total time spent is greater than 50% in coordination of care (as documented) at patient's floor/unit and/or counseling patient: Exam Const: General: cooperative, healthy appearing, comfortable and no acute distress GI: Inspection: non-distended GI Palp: Yes Soft to palpation and No Tenderness to palpation present (GI) Other: fundus firm below umbilicus Extrem: Right lower extremity: no edema Left lower extremity: no edema Other: no calf tenderness
--- NOTE | 2022-02-01 08:30 | P.DS_ITS ---
DS: Admitting Diagnosis Discharge Date 02/01/22 Admitting Diagnosis IUP at 39w1d gestation Active labor OB - DS: Summary OB Procedures : None OB Procedures Intrapartum: Spontaneous Vag Delivery OB Procedures: : None Time Spent with Patient Time attestation: Total time spent providing and/or coordinating discharge services: DS: Data Data Completed and Pending Labs on day of discharge: Labs from last 24 hours 02/01/22 01/31/22 03:49 01:47 Hgb 9.9 L Hct 31.2 L RPR Non-reactive Discharge Plan Discharge Attending physician on discharge: Mei Nunez Discharging Clinician: Mei Nunez Anticipated Discharge Date/Time: 02/01/22 08:31 Patient Disposition: Home, Self-Care Activity: as tolerated and pelvic rest Diet: regular Discharge Instructions: Call office ([phone]) to schedule a visit in 4-6 weeks. You may take Ibuprofen 600mg every 6 hours as needed for pain. Pain medication may make you constipated. It may be helpful to take an [id number] stool softener, such as Colace and/or Senokot, along with the pain medication to help lessen constipation. Call office or go to ED for pain not controlled with medication, headache, chest pain, shortness of breath, fever, chills, persistent nausea or vomiting, severe abdominal pain, heavy vaginal bleeding >2 pads/hour, foul vaginal discharge or odor, or problems with your breasts. Patient Instructions: Antibiotic Form Stand Alone Forms: General Discharge Information Follow-up/Referrals: Mei Nunez MD [Physician] - Discharge Medications: Continued prenat.vits,dalia,vjo-msmk-lwclb Tablet 1 tablet PO DAILY RF: 0 Discontinued ferrous sulfate 325 mg (65 mg iron) tablet 325 mg PO DAILY Qty: 90 RF: 0 Date of admission: 01/31/22 01:26 Primary Care Provider: PHYSICIAN,R[employer]ER Admitting Provider: Mei Nunez Attending physician on admission: Mei Nunez Condition: Stable
[2022-02-01] MEDS: DOCUSATE SODIUM 100 MG CAPSULE PO (10:05)
[2022-02-01] MEDS: ACETAMINOPHEN 325 MG TABLET 650 MG PO (10:05)
[2022-02-01 10:06] VITALS: PULSE 85; RESP 16; O2SAT 100
[2022-02-01] MEDS: MULTIVIT/MIN/PREN/FOL AC/IRON TABLET 1 TAB PO (10:06)
[2022-02-01] MEDS: POLYSACCHARIDE IRON COMPLEX 150 MG CAPSULE PO (10:06)
[2022-02-01] MEDS: TETANUS,DIPHTHERIA,AC PERTUSSIS ADULT (0.5 ML) BOOSTRIX IM (10:24)
--- NOTE | 2022-02-01 12:00 | PC.NURSE ---
PT received discharge instructions per protocol and verbalized understanding of such care.
--- NOTE | 2022-02-01 12:24 | PC.NURSE ---
[id number] Mother led the conversation with her experience and plan to feed her infant so far and her ability to continue with the plan of attempting to pumping and bottle feeding . Mother plans to supplement with formula until her full milk is in. Mother is feeding appropriately for growth of and understands stimulating to eat if needed. has had adequate feedings in the last 24 hours meets the outcomes for weight, output, jaundice and at this time primary RN is working on discharging patient. Mother states she is confident to continue pumping/supplementing her infant at home or when to call for assistance and denies any additional assistance or education at this time. Reinforced understanding of milk production, transition of milk, signs of adequate intake, prevention/relief of engorgement, responsive after visualizing feeding cues, pumping 8 times in 24 hours with 1-2 times at night, community resources, medication information reviewed per [employer] and when to call a provider using the resource of the mom and baby guide/[facility] website. Mother voiced understanding of the education shared. Reported to the primary RN.
--- NOTE | 2022-02-01 12:35 | PC.NURSE ---
PT discharged to home ambulatory accompanied by spouse and and taken to waiting car. follow up appts confirmed
[2022-02-02 10:05] VITALS: BP 123/84; PULSE 85; RESP 20; TEMP 37; O2SAT 99
== END 2022-02-01 12:35 | disposition home or self-care (01) | DRG 807 ==
LOC: ANHLDR 02:44 → ANHOB2 07:37
PROVIDERS: Admitting Provider Obstetrics & Gynecology; Visit Provider Student in an Organized Health Care Education/Training Program
DX: O24.429 Gestational diabetes mellitus in childbirth, unspecified control (principal); Z37.0 Single live birth; Z3A.39 39 weeks gestation of pregnancy
CPT/HCPCS: 36415; 76816; 85014; 85018; 85025; 86592; 86850; 86900; 86901; 90715; A9270; J2590; J2795; J7120